=== PATIENT | female | born 1950 | race Caucasian/White ===

== ENCOUNTER → 2018-03-05 | Outpatient (CLI) | payer MEDICARE, OTHER ==
[~2018-03-05] MED LIST: ASPI325 PO; Aspir 8181 MG PO; Augmentin Xr 11 EACH PO; CITA20 PO; CLOP75 PO; ESOM20 PO; FLUSAL5005 IH; FURO40 PO; IMMUNOGLOBULIN IV; ITRA100 PO; LEVSOD100 PO; LEVSOD88 PO; LIVALO4 MG PO; LIVILO PO; LORA.5 PO; LOSA25 PO; LOSHYD PO; METO25ER PO; MONT10T PO; NEBI5 PO; NITR.4SL SL; NUCALA100 MG; PRED20 PO; ZOLP10 PO; [UNRECOGNIZED DRUG - CODE]; [UNRECOGNIZED DRUG - OTHER]
[2018-03-05 13:12] LABS: Appearance, Urine Clear (Clear); Bilirubin, Urine Neg (Neg); Blood, Urine Neg (Neg); Color, Urine Yellow (P-Yellow); Glucose Qualitative, Urine Neg (Neg); Ketones, Urine Neg (Neg); Leukocyte Esterase, Urine Neg (Neg); Nitrite, Urine Neg (Neg); Protein, Urine Neg (Neg); Urobilinogen, Urine NORM (Normal)
== END ==
LOC: LAB SHORT 10:00 → LAB 10:00
PROVIDERS: Obstetrics & Gynecology
DX: R30.0 Dysuria (principal)
CPT/HCPCS: 81003

== ENCOUNTER → 2018-03-06 | Outpatient (CLI) | payer MEDICARE, OTHER ==
[2018-03-06 20:39] LABS: Candida species (DNA Probe) Negative (NEGATIVE); G. vaginalis (DNA Probe) Negative (NEGATIVE); T. vaginalis (DNA Probe) Negative (NEGATIVE)
== END | disposition home or self-care (01) ==
LOC: LAB 10:22 → LAB SHORT 10:22
PROVIDERS: Obstetrics & Gynecology
DX: N76.0 Acute vaginitis (principal)
CPT/HCPCS: 87480; 87510; 87660

== ENCOUNTER → 2018-03-23 | Outpatient (CLI) | payer MEDICARE, OTHER | END | disposition home or self-care (01) | LOC: LAB SHORT 12:51 → PLD 12:51 | DX: D22.5 Melanocytic nevi of trunk (principal); L57.0 Actinic keratosis | CPT/HCPCS: 88305 ==

== ENCOUNTER 2018-10-02 15:58 | Inpatient (IN) | payer MEDICARE, OTHER ==
[~2018-10-02] VITALS: Ht 157.5 cm; Wt 60.8 kg
[2018-10-02 16:36] LABS: BASOPHILS PERCENT AUTO 0 % (0-2); EOSINOPHILS ABSOLUTE AUTO 0.01 K/mm3 (0.00-0.68); EOSINOPHILS PERCENT AUTO 0 % (0-6); Hematocrit 36.3 % (33.0-51.0); Hemoglobin 12.5 g/dL (11.5-16.0); IMMATURE GRAN ABSOLUTE AUTO 0.02 K/mm3 (0.00-0.10); IMMATURE GRAN PERCENT AUTO 1 % (0-1); LYMPHOCYTES PERCENT AUTO 47 % (21-46); MONOCYTES ABSOLUTE AUTO 0.36 K/mm3 (0.16-1.47); MONOCYTES PERCENT AUTO 12 % (4-13); Mean Corpuscular HGB 29.2 pg (26.0-34.0); Mean Corpuscular HGB Conc 34.4 g/dL (31.5-36.5); Mean Corpuscular Volume 85 fL (80-100); Mean Platelet Volume 9.5 fL (9.1-12.4); NEUTROPHILS ABSOLUTE AUTO 1.22 K/mm3 (1.96-9.15); NEUTROPHILS PERCENT AUTO 41 % (41-73); Platelet Count 297 K/mm3 (150-400); RDW Standard Deviation 43.5 fL (35.1-46.3); Red Blood Cell Count 4.28 M/mm3 (3.80-5.20); White Blood Cell Count 3.01 K/mm3 (4.00-11.30)
[2018-10-02 16:59] LABS: Troponin I <0.015 ng/mL (0.000-0.040)
[2018-10-02 17:11] LABS: Alanine Aminotransfer (ALT/SGP 18 U/L (12-78); Albumin, Blood 3.7 g/dL (3.4-5.0); Alk Phos 77 U/L (50-136); Anion Gap 8 mmol/L (6-16); Aspartate Aminotrans (AST/SGOT 20 U/L (12-37); Bilirubin, Total 0.4 mg/dL (0.1-1.0); Blood Urea Nitrogen 13 mg/dL (8-24); Bun/Creatinine Ratio 18.7 (12.0-20.0); CO2, Blood 25 mmol/L (21-32); Calcium, Blood 8.5 mg/dL (8.5-10.1); Chloride, Blood 85 mmol/L (98-108); Globulin, Blood 3.7 g/dL (2.2-4.0); Glomerular Filtration Rate >60 (60-); Glucose, Blood 75 mg/dL (70-99); Potassium, Blood 3.9 mmol/L (3.5-5.5); Sodium, Blood 118 mmol/L (136-145); Total Protein, Blood 7.4 g/dL (6.4-8.2)
[2018-10-02] MEDS ORDERED: Bystolic5 MG PO (17:30)
[2018-10-02 18:25] LABS: Source, Urine Clean Catch
[2018-10-02 18:44] LABS: Appearance, Urine Clear (Clear); Bilirubin, Urine Neg (Neg); Blood, Urine Neg (Neg); Color, Urine Yellow (P-Yellow); Glucose Qualitative, Urine Neg (Neg); Ketones, Urine Neg (Neg); Leukocyte Esterase, Urine Neg (Neg); Nitrite, Urine Neg (Neg); Protein, Urine Neg (Neg); Specific Gravity, Urine 1.015 (1.003-1.022); Urobilinogen, Urine NORM (Normal)
[2018-10-02 18:54] LABS: Creatinine, Urine Random 9.6 mg/dL (27.00-270.00)
--- NOTE | 2018-10-03 00:18 | NUR ---
PATIENT IS A NEW ADMIT FROM THE ED. TRANSFER VIA W/C AND ONE ASSIST TO BED. PATIENT IS AXOX 4 AND INDEPENDENT. PATIENT DENIES PAIN,SOB, AND N/V. FRIENDS PRESENT ON ADMIT. PATIENT ORIENTED TO ROOM AND CALL LIGHT SYSTEM. ADMISSION COMPLETE. CALL LIGHT IN REACH. WILL CONTINUE TO MONITOR.
--- NOTE | 2018-10-03 00:20 | NUR ---
NORMAL SALINE INFUSING AT 100mL/BAG FROM ED AND NEW BAG STARTED. LAB SODIUM 123 AND 124. PATIENT REPORTS FEELING BETTER SINCE ED ADMIT AND INCREASED SODIUM LEVELS. CALL LIGHT IN REACH. WILL CONTINUE TO MONITOR.
--- NOTE | 2018-10-03 01:20 | NUR ---
PATIENT ON CPAP SET UP BY RT. RT REPORTS PATIENT REFUSED CONTINUOUS PULSE OXIMETRY. PATIENT RESTING. CALL LIGHT IN REACH. WILL CONTINUE TO MONITOR.
--- NOTE | 2018-10-03 04:03 | NUR ---
SHIFT SUMMARY PATIENT IS A NEW ADMIT FROM THE ED. AXOX 4 AND INDEPENDENT IN THE ROOM. SODIUM LAB RESULTS 124 AND 123. PATIENT REPORTS FEELING BETTER SINCE ED ADMIT. PIV REMAINS INTACT. NS INFUSING AT 100mL/HR. DENIES PAIN, SOB, AND N/V. RT SET UP CPAP AND PATIENT REFUSED CONTINUOUS PULSE OXIMETRY. RICKSHAW DRIVER REPORTS SINUS JORGE AT 53. TAKES MEDS WHOLE WITH WATER. ANTI EMBOLIC STOCKINGS. VSS/AFEBRILE. COOPERATIVE WITH CARE. CALL LIGHT IN REACH. BED IN LOWEST POSITION. WILL CONTINUE TO MONITOR UNTIL DAY SHIFT NURSE ASSUMES CARE.
[2018-10-03 05:22] LABS: Alanine Aminotransfer (ALT/SGP 14 U/L (12-78); Albumin, Blood 2.9 g/dL (3.4-5.0); Alk Phos 63 U/L (50-136); Anion Gap 5 mmol/L (6-16); Aspartate Aminotrans (AST/SGOT 19 U/L (12-37); Bilirubin, Total 0.5 mg/dL (0.1-1.0); Blood Urea Nitrogen 11 mg/dL (8-24); Bun/Creatinine Ratio 14.2 (12.0-20.0); CO2, Blood 25 mmol/L (21-32); Calcium, Blood 7.9 mg/dL (8.5-10.1); Chloride, Blood 95 mmol/L (98-108); Creatinine, Blood 0.77 mg/dL (0.40-1.00); Globulin, Blood 2.9 g/dL (2.2-4.0); Glomerular Filtration Rate >60 (60-); Glucose, Blood 79 mg/dL (70-99); Potassium, Blood 4.3 mmol/L (3.5-5.5); Sodium, Blood 125 mmol/L (136-145); Total Protein, Blood 5.8 g/dL (6.4-8.2)
--- NOTE | 2018-10-03 18:23 | NUR ---
PATIENT HAS SHOWN MUCH IMPROVEMENT. SHE IS INDEPENDENT IN THE ROOM AND WILL OFTEN WALK THE HALLS WITH FRIENDS OR SPOUSW. SHE HAS HAD NO COMPLAINTS OF PAIN, SOB, OR NVD NOTED. SHE IS VOIDING WELL AND HER EDEMA TO LOWER EXTREMITIES IS TRACE. NA+ LEVELS CONTINUE TO IMPROVE .
--- NOTE | 2018-10-04 01:27 | NUR ---
PATIENT REQUESTED AMBIEN 5 MG FOR SLEEP THAT SHE USES AT HOME. HOSPITALIST DR DIAZ NOTIFIED AND ORDERED. PATIENT DECLINED AFTER MED WAS ORDERED REPORTING SHE MIGHT FALL ASLEEP ON HER OWN. ON CPAP. CALL LIGHT IN REACH. WILL CONTINUE TO MONITOR.
--- NOTE | 2018-10-04 04:01 | NUR ---
SHIFT SUMMARY PATIENT HAD NO ACUTE CHANGE OBSERVED DURING THE SHIFT. AXOX 4 AND INDEPENDENT IN THE HALLS. DENIES PAIN, SOB, AND N/V. VOIDING. PIV REMAINS INTACT. BLOCK SORTER REPORTS NSR 74. VSS/AFEBRILE. MORNING LAB. PATIENT REQUESTED AMBIEN 5 MG FOR SLEEP AND HOSPITALIST DR DIAZ ORDERED PRN BEDTIME. CALL LIGHT IN REACH. BED IN LOWEST POSITION. WILL CONTINUE TO MONITOR UNTIL DAY SHIFT NURSE ASSUMES CARE.
[2018-10-04 05:09] LABS: Anion Gap 6 mmol/L (6-16); Blood Urea Nitrogen 12 mg/dL (8-24); Bun/Creatinine Ratio 15.8 (12.0-20.0); CO2, Blood 27 mmol/L (21-32); Calcium, Blood 7.9 mg/dL (8.5-10.1); Chloride, Blood 93 mmol/L (98-108); Creatinine, Blood 0.76 mg/dL (0.40-1.00); Glomerular Filtration Rate >60 (60-); Glucose, Blood 90 mg/dL (70-99); Potassium, Blood 4.8 mmol/L (3.5-5.5); Sodium, Blood 126 mmol/L (136-145)
[2018-10-04 14:19] LABS: Anion Gap 7 mmol/L (6-16); Blood Urea Nitrogen 13 mg/dL (8-24); Bun/Creatinine Ratio 17.9 (12.0-20.0); CO2, Blood 26 mmol/L (21-32); Chloride, Blood 98 mmol/L (98-108); Creatinine, Blood 0.73 mg/dL (0.40-1.00); Glomerular Filtration Rate >60 (60-); Glucose, Blood 89 mg/dL (70-99); Potassium, Blood 4.4 mmol/L (3.5-5.5); Sodium, Blood 131 mmol/L (136-145)
[2018-10-04] MEDS ORDERED: LOSA50 PO (15:32)
[2018-10-04] MEDS ORDERED: SODCHL1 PO (15:39)
--- NOTE | 2018-10-04 16:13 | NUR ---
1600 PATIENT HAD IV REMOVED FOR DISCHARGE. NO SS OF INFECTION. NURSE WENT OVER DISCHARGE PAPERS WITH TAIWO. EDUCATED REGARDING NEW MEDS. MEDS FAXED INTO PHARMACY OF CHOICE. PATIENT GATHERED BELONGINGS AND REQUESTED TO WALK OUT. HER FRIEND WAS IN ROOM AND WAS TO TAKE HER HOME .
== END 2018-10-04 16:10 | disposition home or self-care (01) | DRG 641 ==
LOC: ER 15:58 → MEDS 19:32
PROVIDERS: Emergency Medicine; Hospitalist; Physician Assistant; ADMIT Internal Medicine
DX: E87.1 Hypo-osmolality and hyponatremia (principal); D83.9 Common variable immunodeficiency, unspecified; K21.9 Gastro-esophageal reflux disease without esophagitis; E03.9 Hypothyroidism, unspecified; E78.5 Hyperlipidemia, unspecified; I10 Essential (primary) hypertension; F41.9 Anxiety disorder, unspecified; R07.89 Other chest pain; I25.10 Atherosclerotic heart disease of native coronary artery without angina pectoris; Z95.1 Presence of aortocoronary bypass graft; Z95.5 Presence of coronary angioplasty implant and graft; J43.9 Emphysema, unspecified; I25.2 Old myocardial infarction; T50.2X5A Adverse effect of carbonic-anhydrase inhibitors, benzothiadiazides and other diuretics, initial encounter
CPT/HCPCS: 36415; 71046; 80048; 80053; 81003; 82570; 83880; 83930; 83935; 84295; 84300; 84484; 85025; 93005; 93010; 94640; 94760; 96361; 96374; 99285-25; J2405; J7030

== ENCOUNTER → 2018-11-05 | Outpatient (CLI) | payer MEDICARE, OTHER ==
[~2018-11-05] MED LIST changes: +Bystolic5 MG PO; +LOSA50 PO; +SODCHL1 PO
[2018-11-05 15:01] LABS: Osmolality, Urine 353 mos/kg (15-1400)
[2018-11-05 16:06] LABS: Sodium, Urine, Random 109 mmol/L (20-110)
== END | disposition home or self-care (01) ==
LOC: LAB SHORT 14:15 → LAB 14:15
PROVIDERS: Internal Medicine
DX: E87.1 Hypo-osmolality and hyponatremia (principal)
CPT/HCPCS: 83935; 84300

== ENCOUNTER 2018-11-19 00:02 | Day surgery (SDC) | payer MEDICARE, OTHER | END 2018-11-20 13:23 | disposition home or self-care (01) | LOC: ATC 00:02 | DX: E87.1 Hypo-osmolality and hyponatremia (principal); I10 Essential (primary) hypertension; E78.5 Hyperlipidemia, unspecified; E03.9 Hypothyroidism, unspecified | CPT/HCPCS: J0834 ==

== ENCOUNTER 2018-12-17 11:09 | Inpatient (IN) | payer MEDICARE, OTHER ==
[~2018-12-17] VITALS: Ht 154.9 cm; Wt 58.9 kg
[~2018-12-17 11:09] MED LIST changes: +Bystolic2.5 MG PO; -Bystolic5 MG PO; -CITA20 PO; +Celexa10 MG PO; -FLUSAL5005 IH; +FLUT1DIS8 INH; -LOSA50 PO; +LOSARTAN POTAS100 MG PO
[2018-12-17 12:16] LABS: Hematocrit 38.1 % (33.0-51.0); Hemoglobin 12.5 g/dL (11.5-16.0); Mean Corpuscular HGB 29.1 pg (26.0-34.0); Mean Corpuscular HGB Conc 32.8 g/dL (31.5-36.5); Mean Corpuscular Volume 89 fL (80-100); Mean Platelet Volume 10.8 fL (9.1-12.4); Platelet Count 269 K/mm3 (150-400); RDW Coefficient Variation 14.3 % (11.7-14.2); RDW Standard Deviation 45.7 fL (35.1-46.3); White Blood Cell Count 17.33 K/mm3 (4.00-11.30)
[2018-12-17 12:38] LABS: Albumin, Blood 3.1 g/dL (3.4-5.0); Albumin/Globulin Ratio 0.8 (0.8-1.8); BAND PERCENT MAN 11 % (0-8); BASOPHILS PERCENT MAN 0 % (0-2); Bilirubin, Total 0.3 mg/dL (0.1-1.0); Bun/Creatinine Ratio 10.2 (12.0-20.0); Creatinine, Blood 2.54 mg/dL (0.40-1.00); EOSINOPHILS PERCENT MAN 0 % (0-6); Globulin, Blood 3.9 g/dL (2.2-4.0); LYMPHOCYTES ABSOLUTE MAN 0.34 K/mm3 (0.84-5.20); LYMPHOCYTES PERCENT MAN 2 % (21-46); METAMYELOCYTE ABSOLUTE MAN 0.34 K/mm3 (0.00-0.00); METAMYELOCYTE PERCENT MAN 2 % (0-0); MONOCYTES ABSOLUTE MAN 0.86 K/mm3 (0.16-1.47); MONOCYTES PERCENT MAN 5 % (4-13); Magnesium, Blood 1.9 mg/dL (1.6-2.4); NEUTROPHILS ABSOLUTE MAN 15.77 K/mm3 (1.96-9.15); Potassium, Blood 4.3 mmol/L (3.5-5.5); SEG NEUTROPHILS PERCENT MAN 80 % (41-73); TOTAL CELLS COUNTED 100
[2018-12-17] MEDS ORDERED: OSEL75CA PO (13:23)
[2018-12-17] MEDS ORDERED: SYNTHROID112 MCG PO (16:47)
[2018-12-17] MEDS ORDERED: FURO20 PO (16:55)
[2018-12-17 17:43] LABS: Adenovirus F 40/41 Not Detected (NOT DETECT); Astrovirus Not Detected (NOT DETECT); Campylobacter Sp Not Detected (NOT DETECT); Cryptosporidium Not Detected (NOT DETECT); Cyclospora Cayetanensis Not Detected (NOT DETECT); E. Coli O157 Not Detected (NOT DETECT); Entamoeba Histolytica Not Detected (NOT DETECT); Enteroaggregative E. coli-EAEC Not Detected (NOT DETECT); Enteropathogenic E. coli-EPEC Not Detected (NOT DETECT); Enterotoxigenic E. coli-ETEC Not Detected (NOT DETECT); Giardia Lamblia Not Detected (NOT DETECT); Norovirus GI/GII Not Detected (NOT DETECT); Plesiomonas Shigelloides Not Detected (NOT DETECT); Rotavirus A Not Detected (NOT DETECT); Salmonella Sp Not Detected (NOT DETECT); Sapovirus Not Detected (NOT DETECT); Shiga Toxin-prod E. coli-STEC Not Detected (NOT DETECT); Shigella/Enteroin E. coli-EIEC Not Detected (NOT DETECT); Vibrio Cholerae Not Detected (NOT DETECT); Vibrio Sp Not Detected (NOT DETECT); Yersinia Enterocolitica Not Detected (NOT DETECT)
--- NOTE | 2018-12-17 19:20 | NUR ---
SHIFT SUMARY- PT ADMITTED THROUGH THE ED FOR ACUTE KIDNEY INJURY. PT HAS FLU A AND IS POSSITIVE FOR C-DIFF. NO C/O PAIN, PT AMBULATES WELL WITHOUT ASSIST, PER REPORT PT HAS HAD A COUPLE OF RECENT FALLS SINCE THIS ILLNESS STARTED. PT BP WAS VERY LOW BP MED HELD FOR CLINICAL JUDGEMENT. CALLED DR SANTA AT THE END OF THE SHIFT FOR C-PAP ORDERS. PT FAMILY TO BRING IN HOME CPAP, RT NOTIFIED, PASSED ON IN BEDSIDE REPORT TO NIGHT ANN SALMON.
[2018-12-18 05:15] LABS: Hematocrit 31.5 % (33.0-51.0); Hemoglobin 10.2 g/dL (11.5-16.0); Mean Corpuscular HGB 28.8 pg (26.0-34.0); Mean Corpuscular HGB Conc 32.4 g/dL (31.5-36.5); Mean Corpuscular Volume 89 fL (80-100); Mean Platelet Volume 10.9 fL (9.1-12.4); Platelet Count 209 K/mm3 (150-400); RDW Coefficient Variation 14.3 % (11.7-14.2); RDW Standard Deviation 46.8 fL (35.1-46.3); Red Blood Cell Count 3.54 M/mm3 (3.80-5.20); White Blood Cell Count 13.52 K/mm3 (4.00-11.30)
[2018-12-18 05:37] LABS: Albumin, Blood 2.5 g/dL (3.4-5.0); Anion Gap 10 mmol/L (6-16); Blood Urea Nitrogen 33 mg/dL (8-24); Bun/Creatinine Ratio 15.4 (12.0-20.0); CO2, Blood 20 mmol/L (21-32); Calcium, Blood 7.7 mg/dL (8.5-10.1); Chloride, Blood 101 mmol/L (98-108); Creatinine, Blood 2.14 mg/dL (0.40-1.00); Glomerular Filtration Rate 24 (60-); Glucose, Blood 94 mg/dL (70-99); Phosphorus, Blood 3.8 mg/dL (2.5-4.9); Potassium, Blood 3.7 mmol/L (3.5-5.5); Sodium, Blood 131 mmol/L (136-145)
--- NOTE | 2018-12-18 08:05 | NUR ---
NOC SHIFT SUMMARY PT HAS HAD MULTIPLE EPISODES OF DIARRHEA THIS NIGHT ACCOMPANIED WITH STOMACH CRAMPING AND PAIN. WAS RESISTANT TO TREATMENT WITH MEDICATION INITIALY BUT EVENTUALLY CONSENTED TO NORCO. PT WAS TREATED WITH NORCO AND ZOFRAN TO GOOD EFFECT AND VOICED MUCH IMPROVMENT IN DISCOMFORT. VSS. APPEARS IN NO ACUTE DISTRESS. REPORT TO ONCOMING RN.
--- NOTE | 2018-12-18 15:58 | NUR ---
SPOKE TO DR SANTA- PT HAS HOME MEDS SHE WOULD LIKE TO RESUME, OK FOR PT TO BRING MEDS FROM HOME. PT WILL HAVE FAMILY BRING HER MEDS IN THIS EVENING. ANOTHER HOME MEDICATION RESUMED WELL SEE EMAR FOR DETAILS.
--- NOTE | 2018-12-18 17:07 | NUR ---
SHIFT SUMMARY- PT APPEARS TO BE FEELING MUCH BETTER TODAY. SHE HAS BEEN UP AND ABOUT THE ROOM AND THE HALLWAYS. WALKING THE KETCHIKAN IN THE UNIT TWICE. PT ALERT ORIENTED AND INDEPENDENT. PT HAD A FULL SHOWER MINUS HAIR WASH, SHE PULLED IT BACK DURRING THE SHOWER. TELE WAS DC'D TODAY. PT WAS CONCERNED ABOUT HER HOME MEDS THAT SHE WAS NOT RECIEVING HERE SPOKE TO DR SANTA, SEE PREVIOUS NOTE FOR DETAILS. PT HAS HAD TWO DOSES OF PAIN MEDICATION T/O THE SHIFT, STATES SHE IS FEELING MUCH BETTER THIS EVENING. CURRENTLY SITTING UP IN BED WITH HER CALL LIGHT IN REACH IV RUNNING LR AT 125ML/HR.
[2018-12-19 05:28] LABS: Hematocrit 30.6 % (33.0-51.0); Hemoglobin 10.1 g/dL (11.5-16.0); Mean Corpuscular HGB 28.9 pg (26.0-34.0); Mean Corpuscular Volume 87 fL (80-100); Mean Platelet Volume 11.2 fL (9.1-12.4); Platelet Count 226 K/mm3 (150-400); RDW Coefficient Variation 14.6 % (11.7-14.2); RDW Standard Deviation 46.8 fL (35.1-46.3); White Blood Cell Count 7.99 K/mm3 (4.00-11.30)
--- NOTE | 2018-12-19 05:38 | NUR ---
SHIFT SUMMARY PT AWAKE ON/OFF T/O NIGHT TO USE RESTROOM. AOX4. VSS. REPORTS HER BREATHING "FEELS BETTER" & SPO2 >90% ON RA, LUNGS HAVE INSPIRATORY/EXPIRATORY WHEEZES T/O ALL LOBES & PT DENIES SOB. PT REPORTS 4-6/10 CRAMPING PAIN IN ABD ALONG W/NAUSEA, PT WAS MEDICATED 2X W/ZOFRAN & 2X W/NORCO PER ORDERS. PT HAD MULTIPLE LOOSE STOOLS BUT REPORTS THEY ARE MORE FORMED & NOT COMPLETELY LIQUID LIKE BEFORE. CALL LIGHT IS IN REACH & I WILL CONT TO MONITOR PT.
[2018-12-19 06:00] LABS: Anion Gap 8 mmol/L (6-16); Blood Urea Nitrogen 18 mg/dL (8-24); Bun/Creatinine Ratio 18.9 (12.0-20.0); CO2, Blood 20 mmol/L (21-32); Calcium, Blood 8.1 mg/dL (8.5-10.1); Chloride, Blood 108 mmol/L (98-108); Creatinine, Blood 0.95 mg/dL (0.40-1.00); Glomerular Filtration Rate >60 (60-); Glucose, Blood 81 mg/dL (70-99); Potassium, Blood 4.2 mmol/L (3.5-5.5); Sodium, Blood 136 mmol/L (136-145)
--- NOTE | 2018-12-19 15:38 | NUR ---
SHIFT SUMMARY PATIENT A&O X4, INDEPENDENT IN THE ROOM. DENIES ANY PAIN, SOB, OR NAUSEA THIS SHIFT. VSS. LR RUNNING @ 125. NEW 20 GAUGE IV PLACED IN R. FA. PATIENT UP TO WALK THE HALLS THIS SHIFT. FAMILY AT THE BEDSIDE. PATIENT HAS NOT HAD ANY DIARRHEA THIS SHIFT. NO ACUTE CHANGES. BED IN LOWEST POSITION, CALL LIGHT WITHIN REACH. RN WILL CONTINUE TO MONITOR.
--- NOTE | 2018-12-19 21:34 | NUR ---
PT TRANSFERRED FROM ROOM 336 TO 361, REPORT TAKEN FROM TRU ANDUJAR RN. TO IN 361 AT THIS TIME, BELONGINGS WITH PT. PT RESTING IN BED. WILL MONITOR.
--- NOTE | 2018-12-20 04:11 | NUR ---
SHIFT SUMMARY PT TRANSFERRED FROM ROOM 336 TO 361 THIS SHIFT. PT HAS RESTED COMFORTABLY SINCE TRANSFER. SHE REPORTS THAT SHE HAS HAD ONE BM THIS SHIFT. SHE REPORTED SOFT, BUT FORMED, SMALL. MEDICATED X1 FOR NAUSEA. PT HAS HAD NO PAIN THIS SHIFT. INDEPENDENT IN THE ROOM. PLAN IS FOR DC TODAY. WILL CONTINUE TO MONITOR AND REPORT TO ONCOMING RN.
[2018-12-20 05:54] LABS: Albumin, Blood 2.3 g/dL (3.4-5.0); Anion Gap 5 mmol/L (6-16); Blood Urea Nitrogen 10 mg/dL (8-24); Bun/Creatinine Ratio 15.2 (12.0-20.0); CO2, Blood 24 mmol/L (21-32); Chloride, Blood 110 mmol/L (98-108); Creatinine, Blood 0.66 mg/dL (0.40-1.00); Glomerular Filtration Rate >60 (60-); Glucose, Blood 87 mg/dL (70-99); Phosphorus, Blood 2.4 mg/dL (2.5-4.9); Potassium, Blood 4.3 mmol/L (3.5-5.5); Sodium, Blood 139 mmol/L (136-145)
--- NOTE | 2018-12-20 07:10 | NUR ---
HYPERTENSIVE PT HYPERTENSIVE THIS AM, ASYMPTOMATIC. BP INCREASED FROM PRIOR READING. PT TO RECEIVE COREG THIS AM. PRIOR DOSES OF COREG HAVE BEEN HELD OVER THE LAST FEW DAYS DUE TO HR.
--- NOTE | 2018-12-20 16:11 | NUR ---
SHIFT SUMMARY PT HAS HAD NO ACUTE CHANGES THIS SHIFT, MEDICATED 1X FOR ABD PAIN, NO OTHER COMPLAINTS OF ANY KIND. PT UP AMBULATING INDEP IN HALLWAY AT THIS TIME, WILL CONT TO MONITOR UNTIL REPORT GIVEN TO SADE RN.
--- NOTE | 2018-12-21 04:35 | NUR ---
SHIFT SUMMARY PT HAS RESTED MOST OF THE NIGHT, WITH GENERALLY NO COMPLAINTS. SHE REPORTS THAT HER ABD IS A LITTLE SORE, BUT NOT BAD ENOUGH FOR PAIN MEDICATION. PT GIVEN LASIKS DAYSHIFT AND HAS HAD ADEQUATE OUTPUT. RESP E/U ON RA. PRODUCTIVE OCASSIONAL COUGH. PT HAS BEEN HYPERTENSIVE THIS SHIFT. GIUSEPPE BRANCH CALLED AND NOTIFIED AT THE BEGINNING OF THE SHIFT. PT HOME DOSE OF [place] ORDERED, PT RESPONDED TO THIS. HOWEVER, BP ELEVATED ONCE AGAIN THIS AM. DR. VELAZQUEZ CALLED AND NOTIFIED, RECEIVED ORDER FOR PRN HYDRALYZINE. PLAN IS FOR DC HOME TODAY. WILL CONTINUE TO MONITOR AND REPORT TO ONCOMING RN.
[2018-12-21 05:18] LABS: BASOPHILS ABSOLUTE AUTO 0.02 K/mm3 (0.00-0.23); BASOPHILS PERCENT AUTO 1 % (0-2); EOSINOPHILS ABSOLUTE AUTO 0.01 K/mm3 (0.00-0.68); EOSINOPHILS PERCENT AUTO 0 % (0-6); Hematocrit 32.2 % (33.0-51.0); Hemoglobin 10.4 g/dL (11.5-16.0); IMMATURE GRAN ABSOLUTE AUTO 0.18 K/mm3 (0.00-0.10); IMMATURE GRAN PERCENT AUTO 5 % (0-1); LYMPHOCYTES ABSOLUTE AUTO 0.86 K/mm3 (0.84-5.20); LYMPHOCYTES PERCENT AUTO 23 % (21-46); MONOCYTES ABSOLUTE AUTO 0.39 K/mm3 (0.16-1.47); MONOCYTES PERCENT AUTO 10 % (4-13); Mean Corpuscular HGB 28.9 pg (26.0-34.0); Mean Corpuscular HGB Conc 32.3 g/dL (31.5-36.5); Mean Corpuscular Volume 89 fL (80-100); Mean Platelet Volume 10.7 fL (9.1-12.4); NEUTROPHILS ABSOLUTE AUTO 2.35 K/mm3 (1.96-9.15); NEUTROPHILS PERCENT AUTO 62 % (41-73); Platelet Count 245 K/mm3 (150-400); RDW Coefficient Variation 14.6 % (11.7-14.2); RDW Standard Deviation 47.8 fL (35.1-46.3); White Blood Cell Count 3.81 K/mm3 (4.00-11.30)
[2018-12-21 05:45] LABS: Albumin, Blood 2.6 g/dL (3.4-5.0); Anion Gap 7 mmol/L (6-16); Blood Urea Nitrogen 8 mg/dL (8-24); Bun/Creatinine Ratio 11.5 (12.0-20.0); CO2, Blood 26 mmol/L (21-32); Calcium, Blood 8.4 mg/dL (8.5-10.1); Chloride, Blood 105 mmol/L (98-108); Glomerular Filtration Rate >60 (60-); Glucose, Blood 88 mg/dL (70-99); Phosphorus, Blood 4.4 mg/dL (2.5-4.9); Sodium, Blood 138 mmol/L (136-145)
--- NOTE | 2018-12-21 06:31 | NUR ---
RECHECKED BP AND SHE REMAINS HYPERTENSIVE, MEDICATED WITH HYDRALYZINE PER EMAR ORDERS.
[2018-12-21] MEDS ORDERED: SACC250C (12:41)
[2018-12-21] MEDS ORDERED: OSEL75CA PO (12:42)
[2018-12-21] MEDS ORDERED: VANCOCIN HCL125 MG (12:44)
[2018-12-21] MEDS ORDERED: ALBU90OI6 INH (12:47)
--- NOTE | 2018-12-21 13:20 | NUR ---
PT. DISCHARGED HOME WITH FRIEND, [facility]ED TO [facility], DISCHARGE INSTRUCTIONS GIVEN.
== END 2018-12-21 13:22 | disposition home or self-care (01) | DRG 372 ==
LOC: ER 11:09 → MEDS 15:42
PROVIDERS: Internal Medicine; Physician Assistant; ADMIT Internal Medicine
DX: A04.72 Enterocolitis due to Clostridium difficile, not specified as recurrent (principal); N17.9 Acute kidney failure, unspecified; E87.1 Hypo-osmolality and hyponatremia; D83.9 Common variable immunodeficiency, unspecified; J10.1 Influenza due to other identified influenza virus with other respiratory manifestations; I95.1 Orthostatic hypotension; E86.0 Dehydration; E87.70 Fluid overload, unspecified; J45.909 Unspecified asthma, uncomplicated; I25.10 Atherosclerotic heart disease of native coronary artery without angina pectoris; E03.9 Hypothyroidism, unspecified; E78.5 Hyperlipidemia, unspecified; F32.9 Major depressive disorder, single episode, unspecified; K21.9 Gastro-esophageal reflux disease without esophagitis; E83.39 Other disorders of phosphorus metabolism; J47.9 Bronchiectasis, uncomplicated; Z86.19 Personal history of other infectious and parasitic diseases; I25.2 Old myocardial infarction; F41.9 Anxiety disorder, unspecified; Z95.5 Presence of coronary angioplasty implant and graft; Z95.1 Presence of aortocoronary bypass graft; I10 Essential (primary) hypertension
CPT/HCPCS: 36415; 71046; 80048; 80053; 80069; 83735; 84484; 85025; 85027; 87324; 87507; 93005; 93010; 94640; 94760; 96361; 96374; 96376; 99285-25; A9270-GY; J0360; J1940; J2405; J2765; J7040; J7060; J7120

== ENCOUNTER 2018-12-29 10:42 | Emergency (ER) | payer MEDICARE, OTHER ==
[~2018-12-29] VITALS: Ht 154.9 cm; Wt 55.3 kg
[~2018-12-29 10:42] MED LIST changes: +ALBU90OI6 INH; +FURO20 PO; +OSEL75CA PO; +SACC250C; +SYNTHROID112 MCG PO; +VANCOCIN HCL125 MG
[2018-12-29 11:28] LABS: Source, Urine Clean Catch
[2018-12-29 11:34] LABS: BASOPHILS ABSOLUTE AUTO 0.01 K/mm3 (0.00-0.23); BASOPHILS PERCENT AUTO 0 % (0-2); EOSINOPHILS ABSOLUTE AUTO 0.01 K/mm3 (0.00-0.68); EOSINOPHILS PERCENT AUTO 0 % (0-6); Hematocrit 37.3 % (33.0-51.0); IMMATURE GRAN ABSOLUTE AUTO 0.06 K/mm3 (0.00-0.10); IMMATURE GRAN PERCENT AUTO 2 % (0-1); LYMPHOCYTES ABSOLUTE AUTO 1.17 K/mm3 (0.84-5.20); LYMPHOCYTES PERCENT AUTO 34 % (21-46); MONOCYTES ABSOLUTE AUTO 0.46 K/mm3 (0.16-1.47); MONOCYTES PERCENT AUTO 14 % (4-13); Mean Corpuscular HGB 29.2 pg (26.0-34.0); Mean Corpuscular HGB Conc 32.2 g/dL (31.5-36.5); Mean Corpuscular Volume 91 fL (80-100); Mean Platelet Volume 9.8 fL (9.1-12.4); NEUTROPHILS ABSOLUTE AUTO 1.69 K/mm3 (1.96-9.15); NEUTROPHILS PERCENT AUTO 50 % (41-73); Platelet Count 396 K/mm3 (150-400); RDW Coefficient Variation 14.9 % (11.7-14.2); RDW Standard Deviation 49.5 fL (35.1-46.3); Red Blood Cell Count 4.11 M/mm3 (3.80-5.20)
[2018-12-29 11:40] LABS: Appearance, Urine Clear (Clear); Bilirubin, Urine Neg (Neg); Blood, Urine Neg (Neg); Color, Urine Yellow (P-Yellow); Glucose Qualitative, Urine Neg (Neg); Ketones, Urine Neg (Neg); Leukocyte Esterase, Urine Neg (Neg); Nitrite, Urine Neg (Neg); Protein, Urine Neg (Neg); Specific Gravity, Urine 1.005 (1.003-1.022); Urobilinogen, Urine NORM (Normal)
[2018-12-29 12:06] LABS: Alanine Aminotransfer (ALT/SGP 16 U/L (12-78); Albumin, Blood 3.3 g/dL (3.4-5.0); Albumin/Globulin Ratio 0.9 (0.8-1.8); Alk Phos 79 U/L (50-136); Anion Gap 4 mmol/L (6-16); Aspartate Aminotrans (AST/SGOT 12 U/L (12-37); Bilirubin, Total 0.4 mg/dL (0.1-1.0); Blood Urea Nitrogen 18 mg/dL (8-24); Bun/Creatinine Ratio 22.3 (12.0-20.0); CO2, Blood 27 mmol/L (21-32); Calcium, Blood 8.4 mg/dL (8.5-10.1); Chloride, Blood 100 mmol/L (98-108); Creatinine, Blood 0.81 mg/dL (0.40-1.00); Globulin, Blood 3.6 g/dL (2.2-4.0); Glomerular Filtration Rate >60 (60-); Glucose, Blood 72 mg/dL (70-99); Potassium, Blood 4.5 mmol/L (3.5-5.5); Sodium, Blood 131 mmol/L (136-145); Total Protein, Blood 6.9 g/dL (6.4-8.2)
[2018-12-29] MEDS ORDERED: HYDR1TAB94 PO (12:54)
[2018-12-29] MEDS ORDERED: Zofran8 MG PO (12:54)
== END 2018-12-29 13:15 | disposition home or self-care (01) ==
LOC: ER 10:42
PROVIDERS: Emergency Medicine
DX: R10.9 Unspecified abdominal pain (principal); R11.0 Nausea; R74.8 Abnormal levels of other serum enzymes; J45.909 Unspecified asthma, uncomplicated; I10 Essential (primary) hypertension; J43.9 Emphysema, unspecified; Z88.1 Allergy status to other antibiotic agents; Z79.899 Other long term (current) drug therapy; Z87.19 Personal history of other diseases of the digestive system
CPT/HCPCS: 36415; 80053; 81003; 83690; 85025; 93005; 93010; 96361; 96374; 99283-25; J2405; J7120

== ENCOUNTER → 2019-05-13 | Outpatient (CLI) | payer MEDICARE, OTHER ==
[~2019-05-13] MED LIST changes: +HYDR1TAB94 PO; +Zofran8 MG PO
[2019-05-13 11:20] LABS: Source, Urine Clean Catch
[2019-05-13 12:36] LABS: Bilirubin, Urine Neg (Neg); Blood, Urine Neg (Neg); Glucose Qualitative, Urine Neg (Neg); Ketones, Urine Neg (Neg); Leukocyte Esterase, Urine Neg (Neg); Nitrite, Urine Neg (Neg); Protein, Urine Neg (Neg); Specific Gravity, Urine 1.015 (1.003-1.022); Urobilinogen, Urine NORM (Normal)
[2019-05-13 12:57] LABS: Appearance, Urine Clear (Clear); Color, Urine Yellow (P-Yellow)
== END | disposition home or self-care (01) ==
LOC: LAB 11:16 → LAB SHORT 11:16
PROVIDERS: Obstetrics & Gynecology
DX: R82.998 Other abnormal findings in urine (principal)
CPT/HCPCS: 81003

== ENCOUNTER 2019-06-09 00:16 | Day surgery (SDC) | payer MEDICARE, OTHER | END 2019-06-09 10:08 | disposition home or self-care (01) | LOC: ATC 00:16 | DX: E27.40 Unspecified adrenocortical insufficiency (principal); E87.1 Hypo-osmolality and hyponatremia; I10 Essential (primary) hypertension; E03.9 Hypothyroidism, unspecified; I25.10 Atherosclerotic heart disease of native coronary artery without angina pectoris; Z88.1 Allergy status to other antibiotic agents | CPT/HCPCS: 36415; 80400; 82533; 96372; J0834 ==

== ENCOUNTER → 2019-10-22 | Outpatient (CLI) | payer MEDICARE, OTHER ==
[2019-10-22 14:48] LABS: Bilirubin, Urine Neg (Neg); Blood, Urine Neg (Neg); Glucose Qualitative, Urine Neg (Neg); Ketones, Urine Neg (Neg); Leukocyte Esterase, Urine Neg (Neg); Nitrite, Urine Neg (Neg); Protein, Urine Neg (Neg); Urobilinogen, Urine NORM (Normal)
[2019-10-22 14:54] LABS: Appearance, Urine Clear (Clear); Color, Urine Yellow (P-Yellow)
[2019-10-23 10:06] LABS: Candida species (DNA Probe) Negative (NEGATIVE); G. vaginalis (DNA Probe) Negative (NEGATIVE); T. vaginalis (DNA Probe) Negative (NEGATIVE)
== END ==
LOC: LAB SHORT 13:33 → LAB 13:33
PROVIDERS: Obstetrics & Gynecology
DX: N76.0 Acute vaginitis (principal)
CPT/HCPCS: 81003; 87480; 87510; 87660

== ENCOUNTER → 2019-11-08 | Outpatient (CLI) | payer MEDICARE, OTHER ==
[2019-11-09 11:23] LABS: Candida species (DNA Probe) Positive (NEGATIVE); G. vaginalis (DNA Probe) Negative (NEGATIVE); T. vaginalis (DNA Probe) Negative (NEGATIVE)
== END | disposition home or self-care (01) ==
LOC: LAB SHORT 15:30 → LAB 15:30
PROVIDERS: Advanced Practice Midwife
DX: N89.8 Other specified noninflammatory disorders of vagina (principal)
CPT/HCPCS: 87480; 87510; 87660

== ENCOUNTER → 2019-11-30 | Outpatient (CLI) | payer MEDICARE, OTHER ==
[2019-11-30 10:46] LABS: Source, Urine Clean Catch
[2019-11-30 14:40] LABS: Red Blood Cells, Urine 0-2 /hpf (0-2); White Blood Cells, Urine Not Seen /hpf (0-5)
[2019-11-30 14:41] LABS: Bacteria Few /hpf; Squamous Epithelial Cells Few /hpf (Few)
== END | disposition home or self-care (01) ==
LOC: LAB 09:15 → LAB SHORT 09:15
PROVIDERS: Advanced Practice Midwife
DX: N39.0 Urinary tract infection, site not specified (principal); B37.3 Candidiasis of vulva and vagina
CPT/HCPCS: 81015; 87086; 87147

== ENCOUNTER 2019-12-18 12:05 | Emergency (ER) | payer MEDICARE, OTHER ==
[~2019-12-18] VITALS: Ht 172.7 cm; Wt 74.8 kg
[2019-12-18 12:44] LABS: BASOPHILS ABSOLUTE AUTO 0.01 K/mm3 (0.00-0.23); BASOPHILS PERCENT AUTO 0 % (0-2); EOSINOPHILS ABSOLUTE AUTO 0.02 K/mm3 (0.00-0.68); EOSINOPHILS PERCENT AUTO 1 % (0-6); Hematocrit 37.3 % (33.0-51.0); Hemoglobin 11.6 g/dL (11.5-16.0); IMMATURE GRAN ABSOLUTE AUTO 0.01 K/mm3 (0.00-0.10); IMMATURE GRAN PERCENT AUTO 0 % (0-1); LYMPHOCYTES ABSOLUTE AUTO 1.18 K/mm3 (0.84-5.20); LYMPHOCYTES PERCENT AUTO 39 % (21-46); MONOCYTES ABSOLUTE AUTO 0.32 K/mm3 (0.16-1.47); MONOCYTES PERCENT AUTO 11 % (4-13); Mean Corpuscular HGB 25.9 pg (26.0-34.0); Mean Corpuscular HGB Conc 31.1 g/dL (31.5-36.5); Mean Corpuscular Volume 83 fL (80-100); Mean Platelet Volume 10.3 fL (9.1-12.4); NEUTROPHILS ABSOLUTE AUTO 1.46 K/mm3 (1.96-9.15); NEUTROPHILS PERCENT AUTO 49 % (41-73); Platelet Count 296 K/mm3 (150-400); RDW Coefficient Variation 15.3 % (11.7-14.2); RDW Standard Deviation 46.5 fL (35.1-46.3); Red Blood Cell Count 4.48 M/mm3 (3.80-5.20)
[2019-12-18 12:58] LABS: Alanine Aminotransfer (ALT/SGP 27 U/L (12-78); Albumin, Blood 3.6 g/dL (3.4-5.0); Alk Phos 71 U/L (50-136); Anion Gap 6 mmol/L (6-16); Aspartate Aminotrans (AST/SGOT 27 U/L (12-37); Bilirubin, Total 0.4 mg/dL (0.1-1.0); Blood Urea Nitrogen 13 mg/dL (8-24); Bun/Creatinine Ratio 14.1 (12.0-20.0); CO2, Blood 27 mmol/L (21-32); Calcium, Blood 8.7 mg/dL (8.5-10.1); Chloride, Blood 102 mmol/L (98-108); Creatinine, Blood 0.92 mg/dL (0.40-1.00); Globulin, Blood 3.6 g/dL (2.2-4.0); Glomerular Filtration Rate >60 (60-); Glucose, Blood 80 mg/dL (70-99); Potassium, Blood 4.3 mmol/L (3.5-5.5); Sodium, Blood 135 mmol/L (136-145); Total Protein, Blood 7.2 g/dL (6.4-8.2); Troponin I <0.015 ng/mL (0.000-0.040)
[2019-12-18] MEDS ORDERED: NITR.4SL SL (13:38)
[2019-12-18] MEDS ORDERED: PREMARIN VAGINAL CRE (13:38)
[2019-12-18] MEDS ORDERED: WIXELA 500-501 EACH (13:38)
[2019-12-18] MEDS ORDERED: Hydrocortisone5 MG PO (13:38)
[2019-12-18] MEDS ORDERED: ISOSORBIDE MONO30 MG PO (13:38)
[2019-12-18] MEDS ORDERED: EPINEPHRIN0.3 MG/0.3 IJ (13:39)
== END 2019-12-18 16:00 | disposition home or self-care (01) ==
LOC: ER 12:05
PROVIDERS: Nurse Practitioner
DX: R07.9 Chest pain, unspecified (principal); I10 Essential (primary) hypertension; Z88.1 Allergy status to other antibiotic agents; Z79.899 Other long term (current) drug therapy; Z79.51 Long term (current) use of inhaled steroids
CPT/HCPCS: 36415; 71046; 80053; 84484; 85025; 93005; 93010; 99285-25

== ENCOUNTER → 2019-12-21 | Outpatient (CLI) | payer MEDICARE, OTHER ==
[~2019-12-21] MED LIST changes: +EPINEPHRIN0.3 MG/0.3 IJ; +Hydrocortisone5 MG PO; +ISOSORBIDE MONO30 MG PO; +PREMARIN VAGINAL CRE; +WIXELA 500-501 EACH
== END | disposition home or self-care (01) ==
LOC: LAB 11:55 → LAB SHORT 11:55
DX: N76.0 Acute vaginitis (principal)
CPT/HCPCS: 87070; 87106; 87186; 87205

== ENCOUNTER → 2020-07-12 | Outpatient (CLI) | payer MEDICARE, OTHER ==
[~2020-07-12] MED LIST changes: +ASPI81CH PO; +NUCALA100 MG/11 SQ; +RANEXA500 MG PO; +ZOLP5 PO
== END | disposition home or self-care (01) ==
LOC: LAB SHORT 14:01 → PLD 14:01
DX: L57.0 Actinic keratosis (principal)
CPT/HCPCS: 88305

== ENCOUNTER → 2021-03-24 | Outpatient (CLI) | payer MEDICARE, OTHER | END | disposition home or self-care (01) | LOC: LAB SHORT 13:02 → LAB 13:02 | DX: S91.011A Laceration without foreign body, right ankle, initial encounter (principal) | CPT/HCPCS: 87070; 87075; 87077; 87186; 87205 ==

== ENCOUNTER 2021-04-02 08:32 | Day surgery (SDC) | payer MEDICARE, OTHER | END 2021-04-02 23:00 | disposition home or self-care (01) | LOC: WOUND 08:32 | DX: S81.801D Unspecified open wound, right lower leg, subsequent encounter (principal); X58.XXXD Exposure to other specified factors, subsequent encounter; I73.9 Peripheral vascular disease, unspecified; I87.2 Venous insufficiency (chronic) (peripheral); I10 Essential (primary) hypertension; I25.10 Atherosclerotic heart disease of native coronary artery without angina pectoris; Z88.1 Allergy status to other antibiotic agents | CPT/HCPCS: A9270; G0463 ==

== ENCOUNTER 2021-04-09 00:57 | Day surgery (SDC) | payer MEDICARE, OTHER | END 2021-04-09 22:56 | disposition home or self-care (01) | LOC: WOUND 00:57 | DX: S81.801D Unspecified open wound, right lower leg, subsequent encounter (principal); X58.XXXD Exposure to other specified factors, subsequent encounter; I87.2 Venous insufficiency (chronic) (peripheral); I25.10 Atherosclerotic heart disease of native coronary artery without angina pectoris; I10 Essential (primary) hypertension; E27.40 Unspecified adrenocortical insufficiency; Z88.1 Allergy status to other antibiotic agents; Z79.899 Other long term (current) drug therapy | CPT/HCPCS: A9270 ==

== ENCOUNTER 2021-04-16 02:39 | Day surgery (SDC) | payer MEDICARE, OTHER | END 2021-04-16 23:25 | disposition home or self-care (01) | LOC: WOUND 02:39 | DX: S81.801D Unspecified open wound, right lower leg, subsequent encounter (principal); X58.XXXD Exposure to other specified factors, subsequent encounter; I87.2 Venous insufficiency (chronic) (peripheral) | CPT/HCPCS: A9270 ==

== ENCOUNTER 2021-04-18 08:37 | Day surgery (SDC) | payer MEDICARE, OTHER | END 2021-04-18 22:46 | disposition home or self-care (01) | LOC: WOUND 08:37 | DX: S81.801D Unspecified open wound, right lower leg, subsequent encounter (principal); X58.XXXD Exposure to other specified factors, subsequent encounter | CPT/HCPCS: A9270 ==

== ENCOUNTER 2021-04-20 01:02 | Day surgery (SDC) | payer MEDICARE, OTHER | END 2021-04-20 23:16 | disposition home or self-care (01) | LOC: WOUND 01:02 | DX: S81.801D Unspecified open wound, right lower leg, subsequent encounter (principal); X58.XXXD Exposure to other specified factors, subsequent encounter; I87.2 Venous insufficiency (chronic) (peripheral) | CPT/HCPCS: A9270 ==

== ENCOUNTER 2021-04-23 01:55 | Day surgery (SDC) | payer MEDICARE, OTHER | END 2021-04-23 23:03 | disposition home or self-care (01) | LOC: WOUND 01:55 | DX: S81.801D Unspecified open wound, right lower leg, subsequent encounter (principal); X58.XXXD Exposure to other specified factors, subsequent encounter; I87.2 Venous insufficiency (chronic) (peripheral); I25.10 Atherosclerotic heart disease of native coronary artery without angina pectoris; I10 Essential (primary) hypertension; E27.40 Unspecified adrenocortical insufficiency; Z79.899 Other long term (current) drug therapy; Z88.1 Allergy status to other antibiotic agents | CPT/HCPCS: A9270 ==

== ENCOUNTER 2021-04-25 01:30 | Day surgery (SDC) | payer MEDICARE, OTHER | END 2021-04-25 23:06 | disposition home or self-care (01) | LOC: WOUND 01:30 | DX: S81.801A Unspecified open wound, right lower leg, initial encounter (principal); X58.XXXA Exposure to other specified factors, initial encounter; I87.2 Venous insufficiency (chronic) (peripheral) | CPT/HCPCS: A9270 ==

== ENCOUNTER 2021-04-27 00:30 | Day surgery (SDC) | payer MEDICARE, OTHER | END 2021-04-27 23:00 | disposition home or self-care (01) | LOC: WOUND 00:30 | DX: S81.801D Unspecified open wound, right lower leg, subsequent encounter (principal); X58.XXXD Exposure to other specified factors, subsequent encounter; I87.2 Venous insufficiency (chronic) (peripheral) | CPT/HCPCS: A9270 ==

== ENCOUNTER 2021-04-30 00:19 | Day surgery (SDC) | payer MEDICARE, OTHER | END 2021-04-30 22:55 | disposition home or self-care (01) | LOC: WOUND 00:19 | DX: S81.801A Unspecified open wound, right lower leg, initial encounter (principal); I87.2 Venous insufficiency (chronic) (peripheral); I25.10 Atherosclerotic heart disease of native coronary artery without angina pectoris; I10 Essential (primary) hypertension; E27.40 Unspecified adrenocortical insufficiency; W01.0XXA Fall on same level from slipping, tripping and stumbling without subsequent striking against object, initial encounter; Y92.828 Other wilderness area as the place of occurrence of the external cause; Z88.1 Allergy status to other antibiotic agents | CPT/HCPCS: A9270 ==

== ENCOUNTER → 2021-04-30 | Outpatient (CLI) | payer MEDICARE, OTHER | LOC: LAB 15:55 → LAB SHORT 15:55 | DX: D48.5 Neoplasm of uncertain behavior of skin (principal) | CPT/HCPCS: 88305 ==

== ENCOUNTER 2021-05-07 02:20 | Day surgery (SDC) | payer MEDICARE, OTHER | END 2021-05-07 12:00 | disposition home or self-care (01) | LOC: WOUND 02:20 | DX: S81.801D Unspecified open wound, right lower leg, subsequent encounter (principal); X58.XXXD Exposure to other specified factors, subsequent encounter; I87.2 Venous insufficiency (chronic) (peripheral) | CPT/HCPCS: A9270 ==

== ENCOUNTER 2021-05-14 02:11 | Day surgery (SDC) | payer OTHER, MEDICARE | END 2021-05-14 23:43 | disposition home or self-care (01) | LOC: WOUND 02:11 | DX: S81.801A Unspecified open wound, right lower leg, initial encounter (principal); I87.2 Venous insufficiency (chronic) (peripheral); I25.10 Atherosclerotic heart disease of native coronary artery without angina pectoris; I10 Essential (primary) hypertension; E27.40 Unspecified adrenocortical insufficiency; Z79.52 Long term (current) use of systemic steroids; W26.8XXA Contact with other sharp object(s), not elsewhere classified, initial encounter; Y93.01 Activity, walking, marching and hiking; Y92.828 Other wilderness area as the place of occurrence of the external cause | CPT/HCPCS: A9270; G0463 ==

== ENCOUNTER 2021-05-21 02:51 | Day surgery (SDC) | payer OTHER, MEDICARE | END 2021-05-21 23:19 | disposition home or self-care (01) | LOC: WOUND 02:51 | DX: S81.801A Unspecified open wound, right lower leg, initial encounter (principal); I87.2 Venous insufficiency (chronic) (peripheral); I10 Essential (primary) hypertension; I25.10 Atherosclerotic heart disease of native coronary artery without angina pectoris; E27.40 Unspecified adrenocortical insufficiency; W01.0XXA Fall on same level from slipping, tripping and stumbling without subsequent striking against object, initial encounter; Y92.828 Other wilderness area as the place of occurrence of the external cause | CPT/HCPCS: A9270 ==

== ENCOUNTER 2021-06-04 00:29 | Day surgery (SDC) | payer OTHER, MEDICARE | END 2021-06-04 23:06 | disposition home or self-care (01) | LOC: WOUND 00:29 | DX: S81.801A Unspecified open wound, right lower leg, initial encounter (principal); I87.2 Venous insufficiency (chronic) (peripheral); I25.10 Atherosclerotic heart disease of native coronary artery without angina pectoris; I10 Essential (primary) hypertension; E27.40 Unspecified adrenocortical insufficiency; W01.0XXA Fall on same level from slipping, tripping and stumbling without subsequent striking against object, initial encounter; Z79.52 Long term (current) use of systemic steroids; Z88.1 Allergy status to other antibiotic agents; Y92.828 Other wilderness area as the place of occurrence of the external cause | CPT/HCPCS: A9270 ==

== ENCOUNTER 2021-06-18 04:42 | Day surgery (SDC) | payer MEDICARE, OTHER | END 2021-06-18 23:30 | disposition home or self-care (01) | LOC: WOUND 04:42 | DX: L97.812 Non-pressure chronic ulcer of other part of right lower leg with fat layer exposed (principal); I87.2 Venous insufficiency (chronic) (peripheral); I25.10 Atherosclerotic heart disease of native coronary artery without angina pectoris; I10 Essential (primary) hypertension; E27.40 Unspecified adrenocortical insufficiency; Z79.899 Other long term (current) drug therapy | CPT/HCPCS: G0463 ==

== ENCOUNTER 2022-06-28 13:50 | Emergency (ER) | payer MEDICARE, OTHER ==
[~2022-06-28] VITALS: Ht 154.9 cm; Wt 59.0 kg
[2022-06-28 14:41] LABS: BASOPHILS ABSOLUTE AUTO 0.02 K/mm3 (0.00-0.23); BASOPHILS PERCENT AUTO 0 % (0-2); EOSINOPHILS ABSOLUTE AUTO 0.01 K/mm3 (0.00-0.68); EOSINOPHILS PERCENT AUTO 0 % (0-6); Hemoglobin 13.2 g/dL (11.5-16.0); IMMATURE GRAN ABSOLUTE AUTO 0.02 K/mm3 (0.00-0.10); IMMATURE GRAN PERCENT AUTO 0 % (0-1); LYMPHOCYTES PERCENT AUTO 19 % (21-46); MONOCYTES ABSOLUTE AUTO 0.38 K/mm3 (0.16-1.47); MONOCYTES PERCENT AUTO 8 % (4-13); Mean Corpuscular HGB 31.3 pg (26.0-34.0); Mean Corpuscular HGB Conc 34.7 g/dL (31.5-36.5); Mean Corpuscular Volume 90 fL (80-100); Mean Platelet Volume 9.8 fL (9.1-12.4); NEUTROPHILS PERCENT AUTO 72 % (41-73); Platelet Count 259 K/mm3 (150-400); RDW Coefficient Variation 13.9 % (11.7-14.2); RDW Standard Deviation 46.3 fL (35.1-46.3); Red Blood Cell Count 4.22 M/mm3 (3.80-5.20); White Blood Cell Count 4.73 K/mm3 (4.00-11.30)
[2022-06-28 14:52] LABS: Albumin, Blood 3.1 g/dL (3.4-5.0); Bilirubin, Total 0.2 mg/dL (0.1-1.0); Bun/Creatinine Ratio 22.5 (12.0-20.0); Calcium, Blood 8.3 mg/dL (8.5-10.1); Creatinine, Blood 0.89 mg/dL (0.40-1.00); Globulin, Blood 3.2 g/dL (2.2-4.0); Potassium, Blood 3.9 mmol/L (3.5-5.5); Total Protein, Blood 6.3 g/dL (6.4-8.2)
[2022-06-28] MEDS ORDERED: PRED20 PO (17:23)
== END 2022-06-28 17:39 | disposition home or self-care (01) ==
LOC: ER 13:50
PROVIDERS: Emergency Medicine
DX: J45.901 Unspecified asthma with (acute) exacerbation (principal); R07.2 Precordial pain; I10 Essential (primary) hypertension; I25.10 Atherosclerotic heart disease of native coronary artery without angina pectoris; Z88.8 Allergy status to other drugs, medicaments and biological substances; Z79.899 Other long term (current) drug therapy; Z79.02 Long term (current) use of antithrombotics/antiplatelets; Z95.1 Presence of aortocoronary bypass graft
CPT/HCPCS: 36415; 71045; 80053; 84484; 85025; 93005; 93010; 94640; 94664; 99285-25; J7512

== ENCOUNTER 2022-08-13 12:11 | Emergency (ER) | payer OTHER, MEDICARE ==
[~2022-08-13] VITALS: Ht 154.9 cm; Wt 61.2 kg
== END 2022-08-13 16:43 | disposition home or self-care (01) ==
LOC: ER 12:11
DX: S81.812A Laceration without foreign body, left lower leg, initial encounter (principal); I10 Essential (primary) hypertension; J43.9 Emphysema, unspecified; W01.111A Fall on same level from slipping, tripping and stumbling with subsequent striking against power tool or machine, initial encounter; Z79.52 Long term (current) use of systemic steroids; Z79.890 Hormone replacement therapy; Z79.899 Other long term (current) drug therapy; Z79.82 Long term (current) use of aspirin
CPT/HCPCS: 73590; A9270

== ENCOUNTER 2022-08-28 06:09 | Day surgery (SDC) | payer MEDICARE, OTHER | END 2022-08-28 23:02 | disposition home or self-care (01) | LOC: WOUND 06:09 | DX: S81.812A Laceration without foreign body, left lower leg, initial encounter (principal); I87.2 Venous insufficiency (chronic) (peripheral); L97.829 Non-pressure chronic ulcer of other part of left lower leg with unspecified severity; I25.10 Atherosclerotic heart disease of native coronary artery without angina pectoris; I10 Essential (primary) hypertension | CPT/HCPCS: A9270; G0463 ==

== ENCOUNTER 2022-09-04 01:27 | Day surgery (SDC) | payer MEDICARE, OTHER | END 2022-09-04 22:55 | disposition home or self-care (01) | LOC: WOUND 01:27 | DX: S81.812A Laceration without foreign body, left lower leg, initial encounter (principal); I87.2 Venous insufficiency (chronic) (peripheral); L97.829 Non-pressure chronic ulcer of other part of left lower leg with unspecified severity | CPT/HCPCS: A9270; G0463 ==

== ENCOUNTER 2022-09-11 00:48 | Day surgery (SDC) | payer MEDICARE, OTHER | END 2022-09-11 23:58 | disposition home or self-care (01) | LOC: WOUND 00:48 | DX: S81.812A Laceration without foreign body, left lower leg, initial encounter (principal); L97.829 Non-pressure chronic ulcer of other part of left lower leg with unspecified severity; I87.2 Venous insufficiency (chronic) (peripheral) | CPT/HCPCS: A9270 ==

== ENCOUNTER 2022-09-25 00:38 | Day surgery (SDC) | payer MEDICARE, OTHER | END 2022-09-25 23:11 | disposition home or self-care (01) | LOC: WOUND 00:38 | DX: S81.812A Laceration without foreign body, left lower leg, initial encounter (principal); I87.2 Venous insufficiency (chronic) (peripheral); L97.829 Non-pressure chronic ulcer of other part of left lower leg with unspecified severity | CPT/HCPCS: A9270; G0463 ==

== ENCOUNTER 2022-10-02 03:51 | Day surgery (SDC) | payer MEDICARE, OTHER | END 2022-10-02 23:07 | disposition home or self-care (01) | LOC: WOUND 03:51 | DX: I87.2 Venous insufficiency (chronic) (peripheral) (principal); L97.829 Non-pressure chronic ulcer of other part of left lower leg with unspecified severity; I25.10 Atherosclerotic heart disease of native coronary artery without angina pectoris; I10 Essential (primary) hypertension; E27.40 Unspecified adrenocortical insufficiency | CPT/HCPCS: A9270; G0463 ==

== ENCOUNTER → 2022-10-15 | Outpatient (CLI) | payer MEDICARE, OTHER ==
[2022-10-15 14:31] LABS: Candida species (DNA Probe) Positive (NEGATIVE); G. vaginalis (DNA Probe) Negative (NEGATIVE); T. vaginalis (DNA Probe) Negative (NEGATIVE)
== END | disposition home or self-care (01) ==
LOC: LAB SHORT 10:20
PROVIDERS: Obstetrics & Gynecology
DX: N76.0 Acute vaginitis (principal)
CPT/HCPCS: 87480; 87510; 87660

== ENCOUNTER 2022-10-16 01:34 | Day surgery (SDC) | payer MEDICARE, OTHER | END 2022-10-16 22:54 | disposition home or self-care (01) | LOC: WOUND | DX: I87.2 Venous insufficiency (chronic) (peripheral) (principal); L97.829 Non-pressure chronic ulcer of other part of left lower leg with unspecified severity | CPT/HCPCS: A9270; G0463 ==

== ENCOUNTER → 2022-12-18 | Outpatient (CLI) | payer MEDICARE, OTHER ==
[2022-12-19 08:23] LABS: Candida species (DNA Probe) Negative (NEGATIVE); G. vaginalis (DNA Probe) Negative (NEGATIVE); T. vaginalis (DNA Probe) Negative (NEGATIVE)
== END | disposition home or self-care (01) ==
LOC: LAB 15:19 → LAB SHORT 15:19
PROVIDERS: Obstetrics & Gynecology
DX: N76.0 Acute vaginitis (principal)
CPT/HCPCS: 87480; 87510; 87660

== ENCOUNTER → 2023-01-17 | Outpatient (CLI) | payer MEDICARE, OTHER | END | disposition home or self-care (01) | LOC: LAB 16:40 → LAB SHORT 16:40 | DX: L08.9 Local infection of the skin and subcutaneous tissue, unspecified (principal) | CPT/HCPCS: 87070; 87075; 87205 ==

== ENCOUNTER 2023-02-10 01:20 | Day surgery (SDC) | payer MEDICARE, OTHER | END 2023-02-10 22:56 | disposition home or self-care (01) | LOC: WOUND 01:20 | DX: L02.416 Cutaneous abscess of left lower limb (principal); I25.10 Atherosclerotic heart disease of native coronary artery without angina pectoris; I10 Essential (primary) hypertension; Z88.1 Allergy status to other antibiotic agents; L97.829 Non-pressure chronic ulcer of other part of left lower leg with unspecified severity; I87.2 Venous insufficiency (chronic) (peripheral) | CPT/HCPCS: G0463 ==

== ENCOUNTER → 2023-03-27 | Outpatient (CLI) | payer MEDICARE, OTHER ==
[~2023-03-27] MED LIST changes: +Diflucan150 MG PO; -EPINEPHRIN0.3 MG/0.3 IJ; +EPIPEN0.3 MG/0.3 IM; +ESTEST.625 VAG; +FERSU300 PO; +PANT20 PO; +PERCOCET 10-321 EA13 PO; +PREMARIN VAG CREAM VAG; +Percocet 5-3251 EACH PO; -SYNTHROID112 MCG PO; +TOBRAMYCIN300 MG/4 M NEB; +TRELEGY ELLIPT1 EAC1 INH; +TRELEGY ELLIPT1 EACH
== END ==
LOC: PLD 15:07 → LAB SHORT 15:07
DX: D48.5 Neoplasm of uncertain behavior of skin (principal)
CPT/HCPCS: 88305

== ENCOUNTER 2023-04-03 10:23 | Inpatient (IN) | payer MEDICARE, OTHER ==
[~2023-04-03] VITALS: Ht 154.9 cm; Wt 57.2 kg
[~2023-04-03 10:23] MED LIST changes: -Diflucan150 MG PO; -PREMARIN VAG CREAM VAG; -TRELEGY ELLIPT1 EACH
[2023-04-03 11:29] LABS: BASOPHILS ABSOLUTE AUTO 0.02 K/mm3 (0.00-0.23); BASOPHILS PERCENT AUTO 1 % (0-2); EOSINOPHILS PERCENT AUTO 0 % (0-6); Hematocrit 28.4 % (33.0-51.0); Hemoglobin 9.2 g/dL (11.5-16.0); IMMATURE GRAN ABSOLUTE AUTO 0.05 K/mm3 (0.00-0.10); IMMATURE GRAN PERCENT AUTO 1 % (0-1); LYMPHOCYTES ABSOLUTE AUTO 0.79 K/mm3 (0.84-5.20); LYMPHOCYTES PERCENT AUTO 20 % (21-46); MONOCYTES ABSOLUTE AUTO 0.32 K/mm3 (0.16-1.47); MONOCYTES PERCENT AUTO 8 % (4-13); Mean Corpuscular HGB Conc 32.4 g/dL (31.5-36.5); Mean Corpuscular Volume 93 fL (80-100); Mean Platelet Volume 9.7 fL (9.1-12.4); NEUTROPHILS ABSOLUTE AUTO 2.73 K/mm3 (1.96-9.15); NEUTROPHILS PERCENT AUTO 70 % (41-73); Platelet Count 527 K/mm3 (150-400); RDW Coefficient Variation 15.9 % (11.7-14.2); RDW Standard Deviation 53.1 fL (35.1-46.3); Red Blood Cell Count 3.07 M/mm3 (3.80-5.20); White Blood Cell Count 3.91 K/mm3 (4.00-11.30)
[2023-04-03 11:41] LABS: Albumin/Globulin Ratio 0.8 (0.8-1.8); Bilirubin, Total 0.4 mg/dL (0.1-1.0); Bun/Creatinine Ratio 13.4 (12.0-20.0); Calcium, Blood 8.8 mg/dL (8.5-10.1); Creatinine, Blood 0.75 mg/dL (0.40-1.00); Globulin, Blood 3.6 g/dL (2.2-4.0); Potassium, Blood 4.1 mmol/L (3.5-5.5); Total Protein, Blood 6.6 g/dL (6.4-8.2)
[2023-04-03] MEDS ORDERED: TRELEGY ELLIPT1 EACH (12:27)
[2023-04-03 17:28] LABS: CHOL/HDL RATIO 1.8; Cholesterol 140 mg/dL (50-200); HDL Cholesterol 80 mg/dL (>39); LDL/HDL RATIO 0.6; Low Density Lipoprotein Chol 44 mg/dL (0-110); Triglycerides 78 mg/dL (30-160); Very Low Density Lipoprot Chol 15 mg/dL (6-32)
[2023-04-03] MEDS ORDERED: ITRA100 PO (18:15)
[2023-04-03] MEDS ORDERED: Diflucan150 MG PO (18:16)
[2023-04-03] MEDS ORDERED: PREMARIN VAG CREAM VAG (18:18)
[2023-04-03 18:50] VITALS: BP 145/66
[2023-04-03 19:36] VITALS: BP 151/70
[2023-04-04 02:10] VITALS: BP 132/56
--- NOTE | 2023-04-04 05:01 | NUR ---
SHIFT SUMMARY: NORA IS A&OX4. VSS, NO ACUTE EVENTS OVERNIGHT. SHE REPORTS ADEQUATE PAIN CONTROL WITH PERCOCET 5/325 MG. SHE IS INDEPENDENT IN THE ROOM AND WALKS FREQUENTLY D/T THE RIGHT TKA THAT WAS COMPLETED APPROX 3 WEEKS AGO. SHE BROUGHT HER POLAR PACK, WEDGE PILLOW, AND CPAP FROM HOME. SHE IS PLANNING TO ASK HER TO BRING IN A COUPLE OF MEDICATIONS THAT ARE NOT ON THE HOSPITAL'S FORMULARY. DISCUSSED WITH PT THAT MEDICATIONS WILL BE SENT TO PHARMACY FOR VERIFICATION AND ORDER FOR MEDICATION WILL BE OBTAINED FROM PHYSICIAN. SHE IS TOLERATING PO INTAKE WELL, CONTINENT OF BLADDER AND BOWEL. PT IS KNOWLEDGEABLE OF HER MEDICATIONS AND MEDICAL DIAGNOSES. O2 AT 2 LPM VIA NC FOR WORK OF BREATHING. SHE IS LYING IN BED WITH THE CALL LIGHT IN REACH. WCTM UNTIL REPORT IS GIVEN TO DAY SHIFT RN.
[2023-04-04 06:06] LABS: BASOPHILS ABSOLUTE AUTO 0.01 K/mm3 (0.00-0.23); BASOPHILS PERCENT AUTO 0 % (0-2); EOSINOPHILS ABSOLUTE AUTO 0.02 K/mm3 (0.00-0.68); EOSINOPHILS PERCENT AUTO 1 % (0-6); Hematocrit 26.9 % (33.0-51.0); Hemoglobin 8.6 g/dL (11.5-16.0); IMMATURE GRAN ABSOLUTE AUTO 0.02 K/mm3 (0.00-0.10); IMMATURE GRAN PERCENT AUTO 1 % (0-1); LYMPHOCYTES ABSOLUTE AUTO 0.98 K/mm3 (0.84-5.20); LYMPHOCYTES PERCENT AUTO 28 % (21-46); MONOCYTES ABSOLUTE AUTO 0.45 K/mm3 (0.16-1.47); MONOCYTES PERCENT AUTO 13 % (4-13); Mean Corpuscular HGB 30.1 pg (26.0-34.0); Mean Corpuscular Volume 94 fL (80-100); Mean Platelet Volume 9.5 fL (9.1-12.4); NEUTROPHILS ABSOLUTE AUTO 1.97 K/mm3 (1.96-9.15); NEUTROPHILS PERCENT AUTO 57 % (41-73); Platelet Count 448 K/mm3 (150-400); RDW Coefficient Variation 15.9 % (11.7-14.2); RDW Standard Deviation 54.6 fL (35.1-46.3); Red Blood Cell Count 2.86 M/mm3 (3.80-5.20); White Blood Cell Count 3.45 K/mm3 (4.00-11.30)
[2023-04-04 06:31] LABS: Bun/Creatinine Ratio 14.3 (12.0-20.0); Calcium, Blood 8.1 mg/dL (8.5-10.1); Creatinine, Blood 0.77 mg/dL (0.40-1.00); Potassium, Blood 3.8 mmol/L (3.5-5.5)
[2023-04-04 07:39] VITALS: BP 133/59
[2023-04-04 08:12] LABS: IRON BIND.CAP.(TIBC) 226 ug/dL (250-450); IRON SATURATION 15 % (15-55); IRON, SERUM 34 ug/dL (27-139); UIBC 192 ug/dL (118-369)
[2023-04-04 15:48] VITALS: BP 112/56
--- NOTE | 2023-04-04 16:17 | NUR ---
DAYSHIFT SUMMARY Patient alert & oriented x4. Vitals stable, percocet PRN for knee pain. ECHO completed today, plan to do 1-day stress test tomorrow. NPO at midnight. roofing technician reported prolonged QT, MD notified & STAT EKG done. Patient denies cardiac symptoms. Provided education to patient & r/t ignition sources and risk of injury when oxygen in use. Patient and verbalized understanding and denies smoking and or ignition sources in possession. Will continue plan of care.
[2023-04-04 16:29] LABS: Albumin, Blood 2.7 g/dL (3.4-5.0); Anion Gap 7 mmol/L (6-16); Blood Urea Nitrogen 11 mg/dL (8-24); Bun/Creatinine Ratio 12.6 (12.0-20.0); CO2, Blood 26 mmol/L (21-32); Calcium, Blood 8.5 mg/dL (8.5-10.1); Chloride, Blood 101 mmol/L (98-108); Creatinine, Blood 0.87 mg/dL (0.40-1.00); Glomerular Filtration Rate 71 (60-); Glucose, Blood 100 mg/dL (70-99); Magnesium, Blood 2.1 mg/dL (1.6-2.4); Phosphorus, Blood 3.8 mg/dL (2.5-4.9); Sodium, Blood 134 mmol/L (136-145)
[2023-04-04 19:47] VITALS: BP 136/65
--- NOTE | 2023-04-05 04:31 | NUR ---
SHIFT SUMMARY: NORA IS A&OX4. VSS, NO ACUTE EVENTS OVERNIGHT. TELE DID REPORT AN APPROX 20 SECOND RUN OF FELISHA, PT ASYMPTOMATIC. DISCUSSED WITH LAUNDERETTE ATTENDANT. PT IS NPO IN ANTICIPATION OF STRESS TEST TODAY, EXCEPT FOR MEDS AND WATER. PT REPORTS ADEQUATE PAIN CONTROL WITH HALF A TABLET OF PERCOCET AND APAP. SHE TOLERATED PO INTAKE WELL UNTIL BEING MADE NPO AT MIDNIGHT, NO CAFFEINE SINCE HOSPITALITY SERVICES MANAGER'S VISIT AT APPROX 2030. SHE IS INDEPENDENT IN THE ROOM, REPORTS URINATING WITHOUT DIFFICULTY. SHE HAS WORN HER CPAP DURING THE NIGHT, CONTINUOUS PULSE OX IN PLACE. SHE HAS NOT REQUIRED O2 SUPPLEMENTATION FOR THE MAJORITY OF THE SHIFT. SHE IS LYING IN BED WITH THE CALL LIGHT IN REACH. WCTM UNTIL REPORT IS GIVEN TO DAY SHIFT RN.
[2023-04-05 05:12] VITALS: BP 149/65
[2023-04-05 06:47] LABS: BASOPHILS ABSOLUTE AUTO 0.01 K/mm3 (0.00-0.23); BASOPHILS PERCENT AUTO 0 % (0-2); EOSINOPHILS ABSOLUTE AUTO 0.02 K/mm3 (0.00-0.68); EOSINOPHILS PERCENT AUTO 1 % (0-6); Hematocrit 32.5 % (33.0-51.0); Hemoglobin 10.5 g/dL (11.5-16.0); IMMATURE GRAN ABSOLUTE AUTO 0.02 K/mm3 (0.00-0.10); IMMATURE GRAN PERCENT AUTO 1 % (0-1); LYMPHOCYTES ABSOLUTE AUTO 1.28 K/mm3 (0.84-5.20); LYMPHOCYTES PERCENT AUTO 38 % (21-46); MONOCYTES ABSOLUTE AUTO 0.49 K/mm3 (0.16-1.47); MONOCYTES PERCENT AUTO 15 % (4-13); Mean Corpuscular HGB 29.8 pg (26.0-34.0); Mean Corpuscular HGB Conc 32.3 g/dL (31.5-36.5); Mean Corpuscular Volume 92 fL (80-100); Mean Platelet Volume 9.5 fL (9.1-12.4); NEUTROPHILS ABSOLUTE AUTO 1.55 K/mm3 (1.96-9.15); NEUTROPHILS PERCENT AUTO 46 % (41-73); Platelet Count 542 K/mm3 (150-400); RDW Coefficient Variation 15.7 % (11.7-14.2); Red Blood Cell Count 3.52 M/mm3 (3.80-5.20); White Blood Cell Count 3.37 K/mm3 (4.00-11.30)
[2023-04-05 07:10] LABS: IRON BIND.CAP.(TIBC) 221 ug/dL (250-450); IRON SATURATION 18 % (15-55); IRON, SERUM 40 ug/dL (27-139); UIBC 181 ug/dL (118-369)
[2023-04-05 07:10] LABS: FERRITIN 231 ng/mL (15-150)
[2023-04-05 07:45] VITALS: BP 134/52
[2023-04-05 10:58] LABS: Albumin, Blood 2.7 g/dL (3.4-5.0); Anion Gap 12 mmol/L (6-16); Blood Urea Nitrogen 9 mg/dL (8-24); CO2, Blood 24 mmol/L (21-32); Calcium, Blood 8.9 mg/dL (8.5-10.1); Chloride, Blood 98 mmol/L (98-108); Creatinine, Blood 0.75 mg/dL (0.40-1.00); Glomerular Filtration Rate 85 (60-); Glucose, Blood 84 mg/dL (70-99); Phosphorus, Blood 4.6 mg/dL (2.5-4.9); Potassium, Blood 3.6 mmol/L (3.5-5.5); Sodium, Blood 134 mmol/L (136-145)
[2023-04-05 16:10] VITALS: BP 112/41
[2023-04-05 16:11] VITALS: BP 112/41
[2023-04-05 16:23] VITALS: BP 96/68
--- NOTE | 2023-04-05 17:23 | NUR ---
PT IS A/OX4, PLEASANT AND COOPERATIVE. THE PT IS UP IND IN HER ROOM. THE COMPLETED A STRESS TEST TODAY. THE PT HAS REPORTED LIGHTHEADEDNESS T/O THE DAY. PT HAS DENIED C/P, N/V AND SOB TODAY. THE PT HAS HAD ARYTHMIA CHANGES ON HER TELE TODAY MULTIPLE TIMES. A CALL WAS MADE TO THE MAINTENANCE SHOP MANAGER VASCULAR ULTRASOUND TECHNOLOGIST REQUESTED BY DR. BISHOP TO LET HIS KNOW. THEE VASCULAR ULTRASOUND TECHNOLOGIST CAME AND SPOKE WITH THE PT AND HER . THE PTS HAS HAD RECENT KNEE SURGERY AND HAS BEEN UP WALKING ACCOMPANIED BY HER . WHILE THE PT IS IN BED SHE KEEPS HER RIGHT KNEE ELEVATED ABD HAS A POLAR PACK APPLIED. CALL LIGHT IN REACH. WILL CONTINUE TO MONIOTR AND ASSESS FOR CHANGES.
--- NOTE | 2023-04-05 17:30 | NUR ---
PT IS A/OX4, PLEASANT AND COOPERATIVE. THE PT IS UP WITH MINIMAL ASSIST. THE HAS BEEN SLEEPING/RESTING FOR MOST OF THE DAY. THE PT HAS A CHEST TUBE THAT APPEARS TO BE SECURE AND IN PLACE AT THIS TIME. PT IS ON O2 @ 2L/MIN CONTINUOUS BIOX ON. PT WAS MEDICATED FOR PAIN X1 THIS AM. CALL LIGHT IN REACH. WILL CONTINUE TO MONITOR AND ASSESS FOR CHANGES
[2023-04-05 19:38] VITALS: BP 124/44
[2023-04-06] VITALS (26 sets, daily range): BP systolic 87–154; BP diastolic 38–96
--- NOTE | 2023-04-06 03:46 | NUR ---
A/O X 4 VERY PLEASENT AND AMBULATING IN RM, STATED SHE FEELS MUCH BETTER NOT LIGHT HEADEDNESS. DISCUSSED CONT REHAB FOR THE RIGHT KNEE ALSO PLAN FOR TOMORROW AND ANGIOGRAM. PT NOW WITH CPAP SLEEPING COMFORTABLY.
[2023-04-06 04:49] LABS: BASOPHILS ABSOLUTE AUTO 0.01 K/mm3 (0.00-0.23); BASOPHILS PERCENT AUTO 0 % (0-2); EOSINOPHILS ABSOLUTE AUTO 0.02 K/mm3 (0.00-0.68); EOSINOPHILS PERCENT AUTO 1 % (0-6); Hematocrit 33.1 % (33.0-51.0); Hemoglobin 10.7 g/dL (11.5-16.0); IMMATURE GRAN ABSOLUTE AUTO 0.02 K/mm3 (0.00-0.10); IMMATURE GRAN PERCENT AUTO 1 % (0-1); LYMPHOCYTES ABSOLUTE AUTO 1.26 K/mm3 (0.84-5.20); LYMPHOCYTES PERCENT AUTO 39 % (21-46); MONOCYTES ABSOLUTE AUTO 0.45 K/mm3 (0.16-1.47); MONOCYTES PERCENT AUTO 14 % (4-13); Mean Corpuscular HGB 29.6 pg (26.0-34.0); Mean Corpuscular HGB Conc 32.3 g/dL (31.5-36.5); Mean Corpuscular Volume 92 fL (80-100); Mean Platelet Volume 9.1 fL (9.1-12.4); NEUTROPHILS ABSOLUTE AUTO 1.47 K/mm3 (1.96-9.15); NEUTROPHILS PERCENT AUTO 46 % (41-73); Platelet Count 541 K/mm3 (150-400); RDW Coefficient Variation 15.4 % (11.7-14.2); RDW Standard Deviation 51.6 fL (35.1-46.3); Red Blood Cell Count 3.61 M/mm3 (3.80-5.20); White Blood Cell Count 3.23 K/mm3 (4.00-11.30)
[2023-04-06 05:07] LABS: Bun/Creatinine Ratio 16.2 (12.0-20.0); Calcium, Blood 8.8 mg/dL (8.5-10.1); Creatinine, Blood 0.74 mg/dL (0.40-1.00); Potassium, Blood 3.7 mmol/L (3.5-5.5)
[2023-04-06 08:11] LABS: FERRITIN 215 ng/mL (15-150)
--- NOTE | 2023-04-06 10:10 | NUR ---
TRANSFER PT TAKEN TO THE PRIMER INSERTING MACHINE ADJUSTER FOR CORONARY ANGIOGRAM CHRIS Cedeno/OX4. PT TO BE TRANSFERED TO PCU 18 AFTER. REPORT CALLED TO OLIVE JUAREZ IN PCU
--- NOTE | 2023-04-06 11:41 | NUR ---
ARRIVED TO ICU PATIENT ARRIVED TO ICU @ 1130. SHEATH IN PLACE TO LT GROIN. NS IN PRESSURE BAG TO SHEATH. FAMILY IN WAITING ROOM. PATIENT IS A&O X 4. FOLLOWS COMMANDS APPROPRIATELY. REPORT RECEIVED FROM MEDICAL FLOOR NURSE AND BOTTLE WASHING MACHINE OPERATOR NURSE.
--- NOTE | 2023-04-06 12:30 | NUR ---
SHEATH SHEATH SITE TO RT GROIN REMAINS C/D/I WITH NO EVIDENCE OF HEMATOMA OR BLEEDING. PATIENT DENIES PAIN AT STIE.
--- NOTE | 2023-04-06 16:50 | NUR ---
SHEATH REASSESSMENT SHEATH SITE TO LT GROIN REMAINS C/D/I WITH NO SIGNS OF BLEEDING OR HEMATOMA. PATIENT DENIES PAIN.
--- NOTE | 2023-04-06 19:23 | NUR ---
SHIFT SUMMARY/SHEATH REMOVAL PATIENT REMAINED SUPINE T/O SHIFT. SHEATH REMOVED AT 1747 AND PRESSURE HELD FOR 20 MINUTES. VAL DRESSING WITH TEGADERM OVER TOP IN PLACE. NO BLEEDING OR HEMATOMA. VSS STABLE T/O SHIFT. NO URINE OUTPUT OR BM THIS SHIFT. NO OTHER CHANGES DURING SHIFT.
[2023-04-07] VITALS (19 sets, daily range): BP systolic 95–142; BP diastolic 44–82
[2023-04-07 03:44] LABS: Hematocrit 28.8 % (33.0-51.0); Hemoglobin 9.3 g/dL (11.5-16.0); Mean Corpuscular HGB Conc 32.3 g/dL (31.5-36.5); Mean Corpuscular Volume 93 fL (80-100); Mean Platelet Volume 9.4 fL (9.1-12.4); Platelet Count 441 K/mm3 (150-400); RDW Coefficient Variation 15.6 % (11.7-14.2); White Blood Cell Count 3.89 K/mm3 (4.00-11.30)
[2023-04-07 04:02] LABS: Albumin, Blood 2.5 g/dL (3.4-5.0); Anion Gap 7 mmol/L (6-16); Blood Urea Nitrogen 18 mg/dL (8-24); Bun/Creatinine Ratio 23.1 (12.0-20.0); CO2, Blood 23 mmol/L (21-32); Calcium, Blood 8.3 mg/dL (8.5-10.1); Chloride, Blood 106 mmol/L (98-108); Creatinine, Blood 0.78 mg/dL (0.40-1.00); Glomerular Filtration Rate 81 (60-); Glucose, Blood 86 mg/dL (70-99); Phosphorus, Blood 3.7 mg/dL (2.5-4.9); Potassium, Blood 3.9 mmol/L (3.5-5.5); Sodium, Blood 136 mmol/L (136-145)
--- NOTE | 2023-04-07 06:06 | NUR ---
PATIENT AOX4. SR WITH STABLE BP. ROOM AIR WHILE AWAKE AND CPAP AT NIGHT. TOLERATING DIET, BUT PATIENT REPORTING CONSTIPATION. VOIDING IN TOILET. SHEATH REMOVAL SITE HAS GAUZE WITH SMALL AMOUNT OF BLOOD. PATIENT ABLE TO AMBULATE IN ROOM. EDUCATED ON POTENTIAL SOURCES OF IGNITION AND RISKS.
--- NOTE | 2023-04-07 07:51 | NUR ---
ASSUMED CARE PATIENT IS UP IN ROOM WITH NURSE SUPERVISION TO URINATE. PATIENT HAS STEADY GAIT AND STRONG BALANCE. RECLINER SET UP FOR PATIENT WHEN SHE IS READY TO REST. NO MEDICATIONS INF. LT GROIN ACCESS SITE C/D/I. PATIENT C/O SORENESS AT SITE. NO FAMILY OR VISITORS AT THIS TIME. REPORT RECEIVED FROM ANN PETERSON.
[2023-04-07] MEDS ORDERED: ALBU90OI INH (10:39)
[2023-04-07] MEDS ORDERED: Amiodarone HCl200 MG PO ×2 (10:45→10:49)
[2023-04-07] MEDS ORDERED: AMIODARONE HCL400 M2 PO (10:51)
[2023-04-07] MEDS ORDERED: ASPI81CH PO (10:56)
[2023-04-07] MEDS ORDERED: CARV3.125 PO (10:57)
[2023-04-07] MEDS ORDERED: DOCU100 PO (10:58)
[2023-04-07] MEDS ORDERED: MIRALAX17 GM PO (11:00)
[2023-04-07] MEDS ORDERED: NITR.4SL SL (11:01)
[2023-04-07] MEDS ORDERED: Imdur60 MG PO (11:10)
--- NOTE | 2023-04-07 12:26 | NUR ---
DISCHARGE LT GROIN SITE REMAINS C/D/I WITH VAL AND TEGADERM IN PLACE. PATIENT EDUCATED ON SITE CARE. DISCHARGE INSTRUCTIONS INCLUDING FOLLOW UP APPOINTMENTS AND MEDICATIONS PROVIDED TO PATIENT AND EXPLAINED. PIV TO RT HAND REMOVED. PATIENT ASSISTED VIA WHEELCHAIR WITH BELONGINGS TO VEHICLE.
[2023-04-08 07:09] LABS: FERRITIN 195 ng/mL (15-150)
[2023-04-08 08:11] LABS: IRON BIND.CAP.(TIBC) 213 ug/dL (250-450); IRON SATURATION 16 % (15-55); IRON, SERUM 35 ug/dL (27-139); UIBC 178 ug/dL (118-369)
== END 2023-04-07 12:30 | disposition home or self-care (01) | DRG 286 ==
LOC: ER 10:23 → MEDS 19:05 → PCU 04-06 10:02 → ICUE 04-06 11:30
PROVIDERS: Emergency Medicine; Internal Medicine; ADMIT Internal Medicine
PROC: 4A023N7 Measurement of Cardiac Sampling and Pressure, Left Heart, Percutaneous Approach (ICD-10-PCS; principal; 2023-04-06)
PROC: B2111ZZ Fluoroscopy of Multiple Coronary Arteries using Low Osmolar Contrast (ICD-10-PCS; 2023-04-06)
PROC: B2151ZZ Fluoroscopy of Left Heart using Low Osmolar Contrast (ICD-10-PCS; 2023-04-06)
PROC: B2131ZZ Fluoroscopy of Multiple Coronary Artery Bypass Grafts using Low Osmolar Contrast (ICD-10-PCS; 2023-04-06)
PROC: B2181ZZ Fluoroscopy of Left Internal Mammary Bypass Graft using Low Osmolar Contrast (ICD-10-PCS; 2023-04-06)
PROC: B240ZZ3 Ultrasonography of Single Coronary Artery, Intravascular (ICD-10-PCS; 2023-04-06)
DX: I11.0 Hypertensive heart disease with heart failure (principal); I50.33 Acute on chronic diastolic (congestive) heart failure; J96.01 Acute respiratory failure with hypoxia; E27.40 Unspecified adrenocortical insufficiency; E87.1 Hypo-osmolality and hyponatremia; D83.9 Common variable immunodeficiency, unspecified; I47.20 Ventricular tachycardia, unspecified; T82.855A Stenosis of coronary artery stent, initial encounter; I25.110 Atherosclerotic heart disease of native coronary artery with unstable angina pectoris; J45.909 Unspecified asthma, uncomplicated; D50.9 Iron deficiency anemia, unspecified; F41.9 Anxiety disorder, unspecified; E78.5 Hyperlipidemia, unspecified; D69.6 Thrombocytopenia, unspecified; I25.5 Ischemic cardiomyopathy; M41.9 Scoliosis, unspecified; J43.9 Emphysema, unspecified; E03.9 Hypothyroidism, unspecified; D70.9 Neutropenia, unspecified; K59.00 Constipation, unspecified; I49.9 Cardiac arrhythmia, unspecified; I73.00 Raynaud's syndrome without gangrene; M19.90 Unspecified osteoarthritis, unspecified site; D75.839 Thrombocytosis, unspecified; G47.33 Obstructive sleep apnea (adult) (pediatric); Z96.651 Presence of right artificial knee joint; I25.2 Old myocardial infarction; Z88.1 Allergy status to other antibiotic agents; Z79.890 Hormone replacement therapy; Z79.899 Other long term (current) drug therapy; Z79.891 Long term (current) use of opiate analgesic; Z95.5 Presence of coronary angioplasty implant and graft; Z98.890 Other specified postprocedural states; Z79.82 Long term (current) use of aspirin; Z79.02 Long term (current) use of antithrombotics/antiplatelets; Z99.89 Dependence on other enabling machines and devices
CPT/HCPCS: 36415; 36416; 71045; 71260; 75736; 76937; 78452; 80048; 80053; 80061; 80069; 82607; 82728; 82746; 83540; 83550; 83735; 83880; 84484; 85025; 85027; 85347; 85730; 92937; 92978; 93005; 93010; 93017; 93306; 93459; 93970; 94640; 94644; 94660; 94664; 94760; 94762; 96374-59; 99152; 99153; 99285-25; A9270; A9500; C1725; C1753; C1769; C1887; C1894; C9113; J0280; J1644; J1650; J1940; J2250; J2785; J3010; J7030; J7040; J7050; Q9967

== ENCOUNTER → 2023-09-30 | Outpatient (CLI) | payer MEDICARE, OTHER ==
[~2023-09-30] MED LIST changes: +ALBU90OI INH; +AMIODARONE HCL400 M2 PO; +Amiodarone HCl200 MG PO; +CARV3.125 PO; +DOCU100 PO; +Diflucan150 MG PO; +Imdur60 MG PO; +MIRALAX17 GM PO; +PREMARIN VAG CREAM VAG; +TRELEGY ELLIPT1 EACH
== END ==
LOC: PLD 11:54 → LAB SHORT 11:54
DX: L57.0 Actinic keratosis (principal)
CPT/HCPCS: 88305

== ENCOUNTER → 2024-05-07 | Outpatient (CLI) | payer MEDICARE, OTHER ==
[2024-05-07 19:52] LABS: Bacterial Vaginosis PCR Negative (NEGATIVE); Candida Group, PCR NOT DETECTED (NOT DETECT); Candida glabrata-krusei, PCR NOT DETECTED (NOT DETECT)
== END ==
LOC: LAB 15:16 → LAB SHORT 15:16
PROVIDERS: Obstetrics & Gynecology
DX: N76.0 Acute vaginitis (principal)
CPT/HCPCS: 87481; 87661; 87801

== ENCOUNTER → 2024-05-11 | Outpatient (CLI) | payer MEDICARE, OTHER | LOC: LAB 14:32 → LAB SHORT 14:32 | DX: B37.2 Candidiasis of skin and nail (principal) | CPT/HCPCS: 87102 ==

== ENCOUNTER → 2024-06-30 | Outpatient (CLI) | payer MEDICARE, OTHER | LOC: LAB 14:35 → LAB SHORT 14:35 | DX: B37.2 Candidiasis of skin and nail (principal) | CPT/HCPCS: 87070; 87205 ==

== ENCOUNTER → 2025-03-21 | Outpatient (CLI) | payer MEDICARE, OTHER | LOC: LAB 16:52 → LAB SHORT 16:52 | DX: N39.0 Urinary tract infection, site not specified (principal); R35.0 Frequency of micturition; R30.0 Dysuria | CPT/HCPCS: 87086 ==